=== PATIENT | male | born 1975 | race Caucasian/White ===

== ENCOUNTER 2018-05-16 18:13 | Observation (INO) | payer BC ==
[2018-05-16] MEDS ORDERED: SODIUM CHLORIDE 0.9% 1,000 ML IV STA ×2 (18:49→22:45)
--- NOTE | 2018-05-16 18:54 | ED ---
Abdominal Pain HPI - General Chief Complaint: Abdominal Pain Stated Complaint: Abd pain Time Seen by Provider: 05/16/18 18:27 Source: patient Mode of arrival: ambulatory Limitations: no limitations - History of Present Illness Initial Comments: Patient is a 42-year-old male that presents with right lower quadrant pain. He states that it started this morning and feels a sharp intermittent colicky pain that is worse when he moves. He denies any fevers/chills, nausea/vomiting/ diarrhea as well as urinary symptoms or hematuria. He also states that he has never had this problem before has no history of abdominal problems. - Related Data Allergies Allergy/AdvReac Type Severity Reaction Status Date / Time No Known Allergies Allergy Verified 05/16/18 18:19 Review of Systems ROS Statement: Those systems with pertinent positive or pertinent negative responses have been documented in the HPI. Constitutional: Negative for chills, fatigue and fever. HENT: Negative for congestion. Respiratory: Negative for chest tightness, shortness of breath and wheezing. Negative for cough Cardiovascular: Negative for chest pain and palpitations. Gastrointestinal: Positive for abdominal pain. Negative for abdominal distention , diarrhea, nausea and vomiting. Genitourinary: Negative for dysuria. Musculoskeletal: Negative for back pain, neck pain and neck stiffness. Skin: Negative for color change. Neurological: Negative for dizziness, speech difficulty, weakness and light- headedness. Psychiatric/Behavioral: Negative for agitation and confusion. Negative for anxiety ROS Other: All systems not noted in ROS Statement are negative. Past Medical History Past Medical History: Asthma History of Any Multi-Drug Resistant Organisms: None Reported Past Surgical History: No Surgical Hx Reported Past Psychological History: ADD/ADHD Smoking Status: Current some day smoker Past Alcohol Use History: Occasional Past Drug Use History: None Reported General Exam - General Exam Comments Initial Comments: Constitutional: Pt is oriented to person, place, and time. Pt appears well- developed and well-nourished. No distress. HENT: Head: Normocephalic and atraumatic. Eyes: EOM are normal. Neck: Normal range of motion. Neck supple. Cardiovascular: Normal rate, regular rhythm, S1 normal, S2 normal and normal heart sounds. Exam reveals no gallop and no friction rub. No murmur heard. Pulmonary/Chest: Effort normal and breath sounds normal. No tachypnea and no bradypnea. No respiratory distress. No wheezes or rales noted. Abdominal: Soft. Bowel sounds are normal. Pt exhibits no shifting dullness, no distension, no pulsatile liver, no fluid wave, no abdominal bruit and no ascites. There is no tenderness. There is no rigidity, no rebound, no guarding, no tenderness at McBurney's point and negative Liriano's sign. Musculoskeletal: Normal range of motion. Neurological: Pt is alert and oriented to person, place, and time. No cranial nerve deficit. Skin: Skin is warm and dry. No rash noted. Pt is not diaphoretic. No erythema. No pallor. Psychiatric: Pt has a normal mood and affect. Pt behavior is normal. Thought content normal. Limitations: no limitations Course Vital Signs 05/16/18 05/16/18 18:19 22:10 Temperature 98.4 F 97.7 F Pulse Rate 84 74 Respiratory 16 16 Rate Blood Pressure 153/94 136/94 O2 Sat by Pulse 97 98 Oximetry Medical Decision Making - Medical Decision Making Laboratory studies showed that there is no significant leukocytosis and a letter lites are relatively within normal limits. CT of the abdomen showed that there was dilatation of the appendix and it was enlarged to 12 mm however, it was not surrounded by fat stranding and therefore CAT scan was noted to be equivocal. Because of this, ESR and CRP were added which were also both within normal limits. Case was discussed with Dr. rey and it was recommended that patient could either be placed in observation for overnight monitoring or discharge with close follow-up. This is discussed extensively with the patient and family and they requested that he be placed in observation for continued monitoring. This was again discussed with Dr. rey who kindly accepted the observation placement. Patient is made nothing by mouth and is not to receive any analgesics and has maintenance fluids running - Lab Data Result diagrams: 05/16/18 18:45 05/16/18 18:45 Lab Results 05/16/18 05/16/18 05/16/18 Range/Units 18:45 18:45 18:45 WBC 6.0 (3.8-10.6) k/uL RBC 4.58 (4.30-5.90) m/uL Hgb 14.6 (13.0-17.5) gm/dL Hct 42.2 (39.0-53.0) % MCV 92.1 (80.0-100.0) fL MCH 31.9 (25.0-35.0) pg MCHC 34.6 (31.0-37.0) g/dL RDW 12.8 (11.5-15.5) % Plt Count 214 (150-450) k/uL Neutrophils % 62 % Lymphocytes % 29 % Monocytes % 5 % Eosinophils % 2 % Basophils % 0 % Neutrophils # 3.7 (1.3-7.7) k/uL Lymphocytes # 1.7 (1.0-4.8) k/uL Monocytes # 0.3 (0-1.0) k/uL Eosinophils # 0.1 (0-0.7) k/uL Basophils # 0.0 (0-0.2) k/uL ESR (0-15) mm/hr Sodium 140 (137-145) mmol/L Potassium 4.1 (3.5-5.1) mmol/L Chloride 109 H (98-107) mmol/L Carbon Dioxide 21 L (22-30) mmol/L Anion Gap 10 mmol/L BUN 18 (9-20) mg/dL Creatinine 1.17 (0.66-1.25) mg/dL Est GFR (CKD-EPI)AfAm 90 (>60 ml/min/1.73 sqM) Est GFR (CKD-EPI)NonAf 78 (>60 ml/min/1.73 sqM) Glucose 118 H (74-99) mg/dL Calcium 9.3 (8.4-10.2) mg/dL Magnesium 1.9 (1.6-2.3) mg/dL Total Bilirubin 0.5 (0.2-1.3) mg/dL AST 33 (17-59) U/L ALT 45 (21-72) U/L Alkaline Phosphatase 62 (38-126) U/L C-Reactive Protein <5.0 (<10.0) mg/L Total Protein 6.9 (6.3-8.2) g/dL Albumin 4.1 (3.5-5.0) g/dL Lipase 233 (23-300) U/L Urine Color Urine Appearance (Clear) Urine pH (5.0-8.0) Ur Specific [place] (1.001-1.035) Urine Protein (Negative) Urine Glucose (UA) (Negative) Urine Ketones (Negative) Urine Blood (Negative) Urine Nitrite (Negative) Urine Bilirubin (Negative) Urine Urobilinogen (<2.0) mg/dL Ur Leukocyte Esterase (Negative) 05/16/18 05/16/18 Range/Units 19:40 20:14 WBC (3.8-10.6) k/uL RBC (4.30-5.90) m/uL Hgb (13.0-17.5) gm/dL Hct (39.0-53.0) % MCV (80.0-100.0) fL MCH (25.0-35.0) pg MCHC (31.0-37.0) g/dL RDW (11.5-15.5) % Plt Count (150-450) k/uL Neutrophils % % Lymphocytes % % Monocytes % % Eosinophils % % Basophils % % Neutrophils # (1.3-7.7) k/uL Lymphocytes # (1.0-4.8) k/uL Monocytes # (0-1.0) k/uL Eosinophils # (0-0.7) k/uL Basophils # (0-0.2) k/uL ESR 2 (0-15) mm/hr Sodium (137-145) mmol/L Potassium (3.5-5.1) mmol/L Chloride (98-107) mmol/L Carbon Dioxide (22-30) mmol/L Anion Gap mmol/L BUN (9-20) mg/dL Creatinine (0.66-1.25) mg/dL Est GFR (CKD-EPI)AfAm (>60 ml/min/1.73 sqM) Est GFR (CKD-EPI)NonAf (>60 ml/min/1.73 sqM) Glucose (74-99) mg/dL Calcium (8.4-10.2) mg/dL Magnesium (1.6-2.3) mg/dL Total Bilirubin (0.2-1.3) mg/dL AST (17-59) U/L ALT (21-72) U/L Alkaline Phosphatase (38-126) U/L C-Reactive Protein (<10.0) mg/L Total Protein (6.3-8.2) g/dL Albumin (3.5-5.0) g/dL Lipase (23-300) U/L Urine Color Light Yellow Urine Appearance Clear (Clear) Urine pH 7.5 (5.0-8.0) Ur Specific [place] 1.050 H (1.001-1.035) Urine Protein Negative (Negative) Urine Glucose (UA) Negative (Negative) Urine Ketones Negative (Negative) Urine Blood Negative (Negative) Urine Nitrite Negative (Negative) Urine Bilirubin Negative (Negative) Urine Urobilinogen 2.0 (<2.0) mg/dL Ur Leukocyte Esterase Negative (Negative) Disposition Clinical Impression: Right lower quadrant abdominal pain Disposition: ADMITTED IP TO THIS HOSP Condition: Good Instructions: Abdominal Pain (ED) Is patient prescribed a controlled substance at d/c from ED?: No Referrals: None,Stated [Primary Care Provider] - 1-2 days Decision to Admit Reason: Admit from EC Decision Date: 05/16/18 Decision Time: 22:51
[2018-05-16 19:16] LABS: Basophils % (A) 0 %; Eosinophils # (A) 0.1 k/uL (0-0.7); Eosinophils % (A) 2 %; HCT 42.2 % (39.0-53.0); HGB 14.6 gm/dL (13.0-17.5); Lymphocytes # (A) 1.7 k/uL (1.0-4.8); Lymphocytes % (A) 29 %; MCH 31.9 pg (25.0-35.0); MCHC 34.6 g/dL (31.0-37.0); MCV 92.1 fL (80.0-100.0); Mean Platelet Volume 6.7; Monocytes # (A) 0.3 k/uL (0-1.0); Monocytes % (A) 5 %; Neutrophils # (A) 3.7 k/uL (1.3-7.7); Neutrophils % (A) 62 %; Platelet Count 214 k/uL (150-450); RBC 4.58 m/uL (4.30-5.90); RDW 12.8 % (11.5-15.5)
[2018-05-16 19:26] LABS: Albumin 4.1 g/dL (3.5-5.0); Calcium 9.3 mg/dL (8.4-10.2); Magnesium 1.9 mg/dL (1.6-2.3); Potassium 4.1 mmol/L (3.5-5.1); Total Bilirubin 0.5 mg/dL (0.2-1.3); Total Protein 6.9 g/dL (6.3-8.2)
--- NOTE | 2018-05-16 19:57 | CT ---
EXAMINATION TYPE: CT abdomen pelvis w con DATE OF EXAM: 05/16/2018 COMPARISON: None HISTORY: RLQ pain CT DLP: 959.8 mGycm Automated exposure control for dose reduction was used. TECHNIQUE: Helical acquisition of images was performed from the lung bases through the pelvis. CONTRAST: Performed without Oral Contrast and with IV Contrast, patient injected with 100 mL of Isovue 300. FINDINGS: The lung bases show mild subsegmental atelectasis. There is no pleural effusion. Heart size is normal . There is small hiatal hernia. Stomach otherwise appears normal. Liver spleen pancreas appear normal. Gallbladder is contracted. Bile ducts are not dilated. There is no adrenal mass. Kidneys show satisfactory contrast opacification. There is 2.5 cm left nona l parapelvic cyst. There is no hydronephrosis. Bladder distends smoothly. There is no inguinal hernia. There is no free fluid in the pelvis. There i s no evidence of a pelvic mass. There is no intestinal wall thickening. There are no dilated loops. T here is no mesenteric edema or adenopathy. Appendix is slightly enlarged and measures up to 12 mm. Th ere is no surrounding inflammation. 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 There is a a few millimeter L5-S1 spondylolisthesis. The sacru m is intact. Bony pelvis appears intact. IMPRESSION: THERE IS MILD ENLARGEMENT OF THE APPENDIX THAT MEASURES UP TO 12 MM. THIS IS EQUIVOCAL FOR APPENDICIT IS SINCE THERE IS NO FAT STRANDING.
[2018-05-16 20:28] LABS: Appearance,Urine Clear (Clear); Bilirubin,Urine Negative (Negative); Blood,Urine Negative (Negative); Color,Urine Light Yellow; Glucose,Urine (UA) Negative (Negative); Ketones,Urine Negative (Negative); Leukocyte Esterase,Urine Negative (Negative); Nitrite,Urine Negative (Negative); PH, Urine 7.5 (5.0-8.0); Protein,Urine Negative (Negative)
[2018-05-16] MEDS ORDERED: NALOXONE 0.4 MG/ML 1 ML VIAL IV PRN (22:45)
[2018-05-17 00:04] VITALS: BMI 27.0
[2018-05-17 07:25] LABS: HCT 42.9 % (39.0-53.0); HGB 14.6 gm/dL (13.0-17.5); MCV 93.9 fL (80.0-100.0); Mean Platelet Volume 6.8; Platelet Count 211 k/uL (150-450); RBC 4.58 m/uL (4.30-5.90); WBC 7.4 k/uL (3.8-10.6)
[2018-05-17] MEDS ORDERED: PIPERACILLIN-TAZOBACTAM 3.375 GM in DEXTROSE/WATER 1 50ML.BAG IVPB STA (10:40)
[2018-05-17] MEDS ORDERED: MORPHINE SULFATE 2 MG/ML SYRINGE IVP PRN (10:45)
[2018-05-17] MEDS ORDERED: ONDANSETRON 4 MG/2 ML VIAL IVP PRN (10:45)
--- NOTE | 2018-05-17 10:56 | P.GSHP ---
History of Present Illness H&P Date: 05/17/18 Chief Complaint: RLQ abdominal pain Patient has a 2 day history of abdominal pain, began yesterday while hunting. He states it has progressively worsened and came to the ED last night because of the pain. He denies NV. Denies Fevers, had a normal BM with no blood yesterday. He has never had pain like this before. It is worse when he moves. He has had no appetite. He has a history of asthma but no other past medical or surgical history. He was kept NPO and not given pain meds or ABX overnight for rule out appy. He states his pain has not improved and is worse today. Past Medical History Past Medical History: Asthma History of Any Multi-Drug Resistant Organisms: None Reported Past Surgical History: No Surgical Hx Reported Past Psychological History: ADD/ADHD Smoking Status: Light tobacco smoker Past Alcohol Use History: Occasional Past Drug Use History: None Reported Medications and Allergies Allergies Allergy/AdvReac Type Severity Reaction Status Date / Time No Known Allergies Allergy Verified 05/16/18 18:19 Surgical - Exam Osteopathic Statement: *. No significant issues noted on an osteopathic structural exam other than those noted in the History and Physical/Consult. Vital Signs Temp Pulse Resp BP Pulse Ox 98.4 F 84 16 153/94 97 05/16/18 18:19 05/16/18 18:19 05/16/18 18:19 05/16/18 18:19 05/16/18 18:19 - General well developed, well nourished, no distress - Eyes PERRL - Respiratory normal expansion, normal respiratory effort - Cardiovascular Rhythm: regular - Abdomen Sodt, mild distention, TTP RLQ no RRG - Neurologic normal coordination, normal sensation - Psychiatric oriented to time, oriented to person, oriented to place Results - Labs 05/17/18 07:05 05/16/18 18:45 Abnormal Lab Results - Last 24 Hours (Table) 05/16/18 05/16/18 Range/Units 18:45 20:14 Chloride 109 H (98-107) mmol/L Carbon Dioxide 21 L (22-30) mmol/L Glucose 118 H (74-99) mg/dL Ur Specific [place] 1.050 H (1.001-1.035) Diabetes panel 05/16/18 Range/Units 18:45 Sodium 140 (137-145) mmol/L Potassium 4.1 (3.5-5.1) mmol/L Chloride 109 H (98-107) mmol/L Carbon Dioxide 21 L (22-30) mmol/L BUN 18 (9-20) mg/dL Creatinine 1.17 (0.66-1.25) mg/dL Glucose 118 H (74-99) mg/dL Calcium 9.3 (8.4-10.2) mg/dL AST 33 (17-59) U/L ALT 45 (21-72) U/L Alkaline Phosphatase 62 (38-126) U/L Total Protein 6.9 (6.3-8.2) g/dL Albumin 4.1 (3.5-5.0) g/dL Calcium panel 05/16/18 Range/Units 18:45 Calcium 9.3 (8.4-10.2) mg/dL Albumin 4.1 (3.5-5.0) g/dL Pituitary panel 05/16/18 Range/Units 18:45 Sodium 140 (137-145) mmol/L Potassium 4.1 (3.5-5.1) mmol/L Chloride 109 H (98-107) mmol/L Carbon Dioxide 21 L (22-30) mmol/L BUN 18 (9-20) mg/dL Creatinine 1.17 (0.66-1.25) mg/dL Glucose 118 H (74-99) mg/dL Calcium 9.3 (8.4-10.2) mg/dL Adrenal panel 05/16/18 Range/Units 18:45 Sodium 140 (137-145) mmol/L Potassium 4.1 (3.5-5.1) mmol/L Chloride 109 H (98-107) mmol/L Carbon Dioxide 21 L (22-30) mmol/L BUN 18 (9-20) mg/dL Creatinine 1.17 (0.66-1.25) mg/dL Glucose 118 H (74-99) mg/dL Calcium 9.3 (8.4-10.2) mg/dL Total Bilirubin 0.5 (0.2-1.3) mg/dL AST 33 (17-59) U/L ALT 45 (21-72) U/L Alkaline Phosphatase 62 (38-126) U/L Total Protein 6.9 (6.3-8.2) g/dL Albumin 4.1 (3.5-5.0) g/dL Assessment and Plan Assessment: RLQ pain possible appendicitis Plan: Given the abdominal pain worsening during overnight observation in the RLQ and dilated appendix on CT I discussed diagnostic lap possible appendectomy and all other indicated procedures with the patient. Risks benefits and alternatives were discussed. Patient was agreeable and consented. He will be started on Zosyn and pain meds, kept NPO.
[2018-05-17] MEDS ORDERED: SUCCINYLCHOLINE CHLORIDE 100 MG/5 ML SYR IV ONE (12:06)
[2018-05-17] MEDS ORDERED: LIDOCAINE 1% INJ 10MG/ML (20 ML MDV) ONE (12:06)
[2018-05-17] MEDS ORDERED: ROCURONIUM BROMIDE 10 MG/ML 10 ML VIAL IV ONE (12:06)
[2018-05-17] MEDS ORDERED: GLYCOPYRROLATE 0.2 MG/ML 2 ML VIAL ONE (12:06)
[2018-05-17] MEDS ORDERED: fentaNYL (PF) 50 MCG/ML 2 ML AMP ONE (12:06)
[2018-05-17] MEDS ORDERED: NEOSTIGMINE 1 MG/ML 10 ML VIAL ONE (12:06)
[2018-05-17] MEDS ORDERED: PROPOFOL 10 MG/ML 20 ML VIAL IV ONE (12:06)
[2018-05-17] MEDS ORDERED: MIDAZOLAM 2 MG/2 ML VIAL ONE (12:06)
[2018-05-17] MEDS ORDERED: HYDROmorphone (PF) 1 MG/ML ONE (12:06)
[2018-05-17] MEDS ORDERED: IV FLUID CONTINUATION 1,000 ML IV ONE (12:06)
[2018-05-17] MEDS ORDERED: fentaNYL (PF) 50 MCG/ML 2 ML AMP IV PRN (12:28)
[2018-05-17] MEDS ORDERED: LACTATED RINGERS 1,000 ML IV SCH (12:30)
[2018-05-17] MEDS ORDERED: BUPIVACAIN-EPI 0.25%-1:200,000 30 ML VIAL SQ ONE (12:30)
--- NOTE | 2018-05-17 13:21 | P.OP ---
Date of Procedure: 05/17/18 Preoperative Diagnosis: Appendicitis/ RLQ pain Postoperative Diagnosis: Appendicitis Procedure(s) Performed: Lap Appendectomy Anesthesia: CAITIE Surgeon: Jesus Huynh Estimated Blood Loss (ml): 5 Urine output (ml): 100 Pathology: none sent Condition: stable Disposition: floor Indications for Procedure: This is a 42-year-old male who presented with right lower quadrant pain started one day ago he had a dilated appendix at 12 mm on computed tomography scan. Overnight his pain got worse. He described the risks benefits and alternatives to diagnostic laparoscopy possible appendectomy he agreed and consented Description of Procedure: Patient was brought into the operative suite remained in the supine position underwent general endotracheal anesthesia per Department of anesthesia he was prepped and draped in the usual sterile fashion timeout was performed correct patient correct procedure correct site was verified. A 5 mm incision was made in the midline just above the umbilicus and using a 5 mm Visiport the abdomen was entered under direct visualization and insufflated no injuries were noted a 5 mm port was then placed in the suprapubic under direct visualization. The patient was placed head down right side up and the appendix was noted to be dilated and injected. There is no purulence. At this time decision was made to perform laparoscopic appendectomy of 12 mm port was placed in the left lower quadrant under direct visualization using a LigaSure device and mesoappendix is taken down to the base of the cecum and a 45 mm purple load Endo MERNA stapler was used to staple across the appendix at the base of the cecum. The appendix was then removed through the 12 mm port site with the aid of a Endo Catch bag. The abdomen was inspected gallbladder was noted to be normal-appearing with no inflammation the small bowel was run from the terminal ileum to the ligament of Treitz and no abnormalities were noted. The staple line was inspected and hemostasis was noted. The 12 mm port site was closed with interrupted 0 Vicryl with 8 of a Devonte-Renetta suture passer. The abdomen was desufflated all ports removed under direct visualization and hemostasis was noted the skin was closed with 4-0 Monocryl and skin glue patient tolerated procedure well no apparent complications
[2018-05-17] MEDS: HYDROmorphone 1 MG/ML 1 ML SYRINGE IVP ONE ×2 (13:39→13:46)
[2018-05-17] MEDS: HEPARIN SODIUM,PORCINE 5,000 UNIT/ML 1 ML VIAL SQ SCH (19:12)
[2018-05-17] MEDS ORDERED: HYDROcodone/APAP 5-325MG 1 EACH TAB PO PRN (21:25)
[2018-05-18 00:19] VITALS: TEMP 98.2
[2018-05-18] MEDS: HEPARIN SODIUM,PORCINE 5,000 UNIT/ML 1 ML VIAL SQ SCH ×2 (00:50→07:50)
[2018-05-18 08:50] VITALS: BP 123/77; PULSE 77; RESP 18
--- NOTE | 2018-05-18 12:45 | P.DS ---
Providers Date of admission: 05/16/18 22:51 Attending physician: Jesus Huynh DO Primary care physician: Stated None Hospital Course: This is a 42-year-old male presented with right lower quadrant pain 1 day history he was kept overnight for observation he had a dilated appendix at [address] scan. His pain worsened overnight he described the risks benefits and alternatives to diagnostic laparoscopy with possible appendectomy. He underwent surgery on 05/17/2018 and had an uneventful lap appendectomy for acute appendicitis. He immediately felt better he began tolerating a regular diet later that night. Postop day 1 patient stated that he was tolerating his diet pain was very well controlled he was discharged home in stable condition with instructions to follow-up in 2 weeks in my office Patient Condition at Discharge: Stable Plan - Discharge Summary Discharge Rx Participant: Yes New Discharge Prescriptions: New Docusate [Colace] 100 mg PO DAILY #10 capsule HYDROcodone/APAP 5-325MG [[employer] 5-325] 1 tab PO Q4HR PRN 3 Days #18 tab PRN Reason: Pain No Action Fluticasone/Salmeterol [Advair Hfa 115-21 Mcg Inhaler] 2 puff INHALATION RT- DAILY Dextroamphetamine/Amphetamine [Adderall Xr] 25 mg PO QAM PRN PRN Reason: WORK Discharge Medication List Dextroamphetamine/Amphetamine [Adderall Xr] 25 mg PO QAM PRN 05/17/18 [History] Docusate [Colace] 100 mg PO DAILY #10 capsule 05/17/18 [Rx] Fluticasone/Salmeterol [Advair Hfa 115-21 Mcg Inhaler] 2 puff INHALATION RT- DAILY 05/17/18 [History] HYDROcodone/APAP 5-325MG [[employer] 5-325] 1 tab PO Q4HR PRN 3 Days #18 tab [Rx] Follow up Appointment(s)/Referral(s): Jesus Huynh DO [Doctor of Osteopathic Medicine] - 05/27/18 1:00 pm Patient Instructions/Handouts: Abdominal Pain (ED) Discharge Disposition: HOME SELF-CARE
== END 2018-05-18 11:26 | disposition home or self-care (01) ==
LOC: EC 18:13 → 4SSUR 22:51
PROVIDERS: ADMIT Student in an Organized Health Care Education/Training Program; ATTEND Student in an Organized Health Care Education/Training Program
DX: K35.80 Unspecified acute appendicitis (principal); K36 Other appendicitis; J45.909 Unspecified asthma, uncomplicated; F90.9 Attention-deficit hyperactivity disorder, unspecified type; F17.200 Nicotine dependence, unspecified, uncomplicated; Z79.51 Long term (current) use of inhaled steroids
CPT/HCPCS: 44970; 96360; 96361; 99285; 36415; 88304; 80053; 85652; 83690; 83735; 85025; 85027; 86140; 81003; 74177; G0378 ×3; J2250; J1644 ×2; J2710; J2001; J3010; J1170; J0330; J2704; Q9967